=== PATIENT | female | born 1940 | race Caucasian/White ===

== ENCOUNTER → 2016-10-17 | Outpatient (CLI) | payer OTHER ==
[~2016-10-17] MED LIST: ASPCH81X PO; B-COCAP2 PO; CALC1TAB10 PO; CINN500T PO; CRAN500C2 PO; CYAN10005 PO; HYDR12.56 PO; MULT-190 PO; MULT-506 PO; OMEG10007 PO; PRAV40TA PO
--- NOTE | 2016-10-18 06:39 | PAP/PSG TECHNICIAN REPORT ---
[facility] Special Tester Polysomnogram Report Study name: None Report date: 10/18/2016 Study date: 10/17/2016 Referring Physician: Aaron LENZ M.D. Name: ROBERTH KIM Interpreting Physician: Julita Lenz M.D. Date of : 1940 Special Tester: Yolande Pisano RPSGT. Sex: Female Age: 76 Study Type: PSG Weight: 301 lbs 17.5 in Height: 76 years, Height 5' 2" Neck Circum: BMI: 55.05 Medications: FUROSEMIDE 40 MG, POTASSIUM CHLORIDE 20 MEQ, VIT D3 1000 UNIT, CINNAMON 500 MG, CRANBERRY 1000 MG, VIT B-12 1000 MG, PRESERVISION, FISH OIL 1200 MG, CALCIUM 1000 +D 800 M, B COMPLEX, MULTI VIT, ASPIRIN 81 MG Patient History 76 yr-old female here for a baseline/split study. She has had previous sleep testing in 2007. She could not tolerate CPAP but is back to assess her ARIA. She still has a history of some daytime sleepiness. Her [place] scale is 6. The test was started on room air. ETCO2 testing is included in this study. Room 3 Parameters Monitored NPSG: E1-M2, E2-M1, Fp1-M2, Fp2-M1, F3-M2, F4-M2, F4-M1, C3-M2, C4-M2, C4-M1, O1-M2, O2-M2, O2-M1, T3-M2, T4-M1, P3-M2, P4-M1, CHIN1, CHIN2, HR, EKG, Legs, PFLOW, SNOR, FLOW, CFLOW, Tidal Volume, THOR, ABDO, SpO2, PLTH, CPRESS, ETCO2 Wave, ETCO2, pH Sleep Architecture Sleep Stages Time at Lights Off 10:53:38 PM STAGES Time (min.) TST (%) Time at Lights On 5:43:08 AM Wake 95.5 -- Total Recording Time (TRT) 409.00 min. N1 55.5 18 Total Sleep Period (TSP) 369.5 min. N2 169.5 54 Total Sleep Time (TST) 313.5min. N3 17.0 5 Awake Time 95.5 min. REM 71.5 23 Wake after Sleep Onset 56.0 min. Sleep Efficiency (SE) 77 % Sleep Onset Latency (BRENTON) 40.0 min. Number of Stage 1 Shifts None Awakenings 16 Stage Changes 87 Number of REM periods 4 REM 71.5 23 REM Latency 150.0 min. NREM 242.0 77 Body Position Analysis Supine Right Left Side Prone Vertical Total Sleep Time (min.) 93.1 0.0 264.5 264.50 0.0 0.0 Total Sleep Time (%) 16% 0% 84% 84 0% N/A% Total Sleep Time REM (min.) 0.0 0.0 71.5 None 0.0 0.0 Total Sleep Time NREM (min.) 49.0 0.0 193.0 None 0.0 0.0 Intermittent Wake (min.) 44.1 0.0 51.4 None 0.0 0.0 Total Sleep Period (%) 15% None None None None None Arousals Myoclonus (PLM) * Events Count Index Events Count Index Spontaneous 14 3 Events Awake (PLMW) 161 101.2 Respiratory 41 8.0 Events Asleep w/ Arousal (PLMA) 84 16.1 PLM 84 16 Events Asleep w/o Arousal (PLMS) 133 25.5 Snoring 17 3 Total Asleep 217 41.5 Total 156 30 Total 378 55 Respiratory Analysis * CA OA MA CH H RERA Total Count 15 33 0 0 31 25 79 Index 2.9 6.3 0.0 0 5.9 5 19.9 Mean Duration 13.8 15.8 0.0 0.00 18.5 18.4 17.0 Longest Duration 18.2 29.3 0.0 0.00 0.0 28.6 41.3 Respiratory Event Summary Total Supine ~Supine Right Left Prone REM NREM Apneas Count 48 12 36 N/A 36 N/A 12 36 Index 9.2 15 8 N/A 8.2 N/A 10 9 Hypopneas (4% Desat) Count 31 6 25 N/A 25 N/A 22 9 Index 5.9 7.3 6 N/A 5.7 N/A 18.5 2.2 Apneas & All Hypopneas Count 79 18 61 N/A 61 N/A 34 45 Index 15.1 22 14 N/A 14 N/A 28.5 11.2 Respiratory Events ([employer] Supervisor+All Hyp+RERA) Count 79 34 70 N/A 70 N/A 34 45 Index 19.9 42 16 N/A 15.9 N/A 29.4 17.1 Respiratory Related Arousal Count 41 34 14 N/A 14 N/A 4 38 Index 8.0 34 3 N/A 3 N/A 3 9 Snoring Analysis Supine Right Left Prone REM NREM Total Snore duration 64.4 min Snores count 170 N/A 1,997 N/A 588 1,579 2,167 Snore mean duration 1.8 Sec Snores index 208 N/A 453 N/A 493.4 391.5 414.7 TST with snoring (%) 20.5% SpO2 Analysis Total REM NREM Awake <50% 0.0 min. 0.0 min. 0.0 min. 0.0 min. 51 - 60% 0.0 min. 0.0 min. 0.0 min. 0.0 min. 61 - 70% 0.1 min. 0.1 min. 0.0 min. 0.0 min. 71 - 80% 0.8 min. 0.8 min. 0.0 min. 0.0 min. 81 - 90% 75.7 min. 22.4 min. 52.5 min. 0.7 min. 91 - 100% 332.0 min. 48.2 min. 189.4 min. 94.4 min. Average 92 91 92 93 Minimum SpO2 70 70 85 88 Desaturation Event Index 7.5 22.7 4.5 3.8 # Desat. Events below 89% 22 20 2 N/A Time(%) with Saturation below 89% 5.2 3.5 1.6 0.1 Time(min.) with Saturation below 89% 21.4 14.5 6.7 0.2 Heart Rate Analysis End Tidal CO2 Analysis Min (bpm) Max (bpm) Average (bpm) TSP (mins) % of TSP Awake 46 75 63 Above 55 mmHg 0.0 0.0 NREM 45 99 56 50-55 mmHg 8.1 2.6 REM 48 76 60 45-50 mmHg 82.8 26.4 Overall 45 99 57 40-45 mmHg 75.3 24.0 35-40 mmHg 32.0 10.2 30-35 mmHg 19.4 6.2 Average ETCO2 0.2 Supplemental O2 Values Minimum O2 level: None Value Start Time End Time Special Tester Comments Ms. Kim slept in the supine and left positions. No cardiac arrhythmias were noted. PLMs were noted. No bruxism noted. Snoring was noted and scored as a 3 on a scale of 1 through 5. (0=no snoring, 5=snoring loud enough to be heard through a closed door or down the becerra way). She did not meet specific Split-Night criteria during the diagnostic portion of this study. She did not wake up to use the restroom during the night. Ms. Kim stated that she did not sleep as well as she usually does. The final report will be interpreted and signed by a sleep physician. The completed physician report will then be placed in the patient medical record. Therapy (cm H2O) 0 TIB (min.) 409.0 TST (min.) 313.5 Sleep Onset (min.) 40.0 REM Onset From Sleep (min.) 150.0 Sleep Efficiency % 77 Wakefulness (%) 23 Wakefulness (min.) 95.5 NREM 1 (%) 18 NREM 1 (min.) 55.5 NREM 2 (%) 54 NREM 2 (min.) 169.5 NREM 3 (%) 5 NREM 3 (min.) 17.0 REM (%) 23 REM (min.) 71.5 # Arousals 156 Arousal Index 30 # Snore 2,167 Snore Index 414.7 AHI 15.1 AHI Supine 22 AHI Non-Supine 14 NREM AHI 11.2 REM AHI 28.5 RDI 19.9 # Obstructive Apnea 33 # Central Apnea 15 # Mixed Apnea 0 # Hypopneas 31 RERAs 25 Total Respiratory Events 105 Time Below SpO2 89% (min.) 21.2 Mean NREM SpO2 (%) 92 Mean REM SpO2 (%) 91 Mean Sleep SpO2 (%) 92 Min NREM SpO2 (%) 85 Min REM SpO2 (%) 70 Position Supine (min.) 93.1 Position Non-supine (min.) 264.5 LM Index Sleep 41.5 LM Index NREM 47.9 LM Index REM 20.1 Mean Heart Rate (bpm) 57 Min Heart Rate (bpm) 45 Special Tester Comments and User Events: Comment/Event Page Number Time of Day PT CALS 345 10:49:45 PM Look Right 345 10:50:05 PM Look Up 345 10:50:06 PM Look Left 345 10:50:07 PM Look Up 346 10:50:13 PM Look Down 346 10:50:16 PM Eyes Closed 346 10:50:23 PM Bite down on Jaw 346 10:50:35 PM Flex foot 347 10:50:42 PM Hold Breath 347 10:50:53 PM Snore sound 347 10:51:07 PM Effort (Abdomen) mapped to 6A-7R 521 12:17:59 AM Effort (Abdomen) mapped to 6A-6R 521 12:18:02 AM Effort (Abdomen) mapped to 7A-6R 549 12:31:55 AM Effort (Abdomen) mapped to 7A-7R 549 12:31:58 AM SHE STATED THAT SHE DOES NOT SLEEP WITH CLOTHES ON AND FEELS "TOO BOUND UP" 556 12:35:31 AM THAT END TIDAL HOSE IS RIGHT IN HER NOSE AND STILL NOT WORKING 892 3:23:12 AM
--- NOTE | 2016-10-30 21:10 | POLYSOMNOGRAPH REPORT ---
REFERRING PERSON: Dr. Eladio Lenz. FISHER TRAWL NET: Yolande Pisano. Ms. Martinez is a 76-year-old female sent for baseline sleep study. She has sleep testing performed in 2007, which showed obstructive sleep apnea; however, at that time she could not tolerate CPAP therapy and was not treated. She does have some daytime sleepiness. Her [place] sleepiness scale score on the evening of this study is 6. BMI is 55.05. Following the technical and digital specifications of the [place] [employer] (AASM) a standard diagnostic polysomnogram was performed monitoring EEG, EOG, EMG (chin and leg deviations), oxygen saturation, body position, digital video, respiratory effort and airflow. The sleep Stage and event scoring was based on the AASM Manual for the Scoring of Sleep and Associated Events 2007 edition. Apneas are defined as a drop in the peak thermal sensor excursion by >90% of baseline for at least 10 seconds. Hypopneas were scored using the 4% oxygen desaturation rule (4A-[employer]ic[employer]) and a decrease in the nasal pressure excursions by >30% of baseline for at least 10 seconds. Respiratory effort-related arousal (RERA's) is defined as a sequence of breaths lasting at least 10 seconds characterized by increasing respiratory effort or flattening of the nasal pressure waveform leading to an arousal from sleep when the sequence of breaths does not meet criteria for an apnea or hypopnea. Apnea Hypopnea index (AHI) is defined as the number of apneas and hypopneas occurring in an hour of sleep. Respiratory disturbance index (RDI) is defined as the number of apneas, hypopneas, and RERA's occurring in an hour of sleep. Ms. Martinez's total sleep period time was 369.5 minutes. Total sleep time was 313.5 minutes. Sleep efficiency was 77%. Latency to sleep onset was 40 minutes with wake after sleep onset of 56 minutes. Total non-REM sleep time was 242 minutes. She spent 18% of that time in N1 sleep, 54% in N2 sleep, and 5% in N3 sleep. REM latency was 150 minutes. Total REM sleep time was 71.5 minutes or 23% of total sleep time. There were 156 cortical arousals from sleep. Thirteen of these arousals were spontaneous, 41 were due to respiratory events, 84 were due to periodic limb movements of sleep and 17 were due to snoring. There were 217 periodic limb movements noted on this test. Limb movement index was 41.5 and limb movement with arousal index was 16.1. There were 15 central, 33 obstructive and no mixed apneas on this test. Additionally, there were 31 hypopneas and 25 RERAs for an apnea hypopnea index of 15.1 and RDI of 19.9. This is consistent with moderate sleep apnea. There were 2167 snoring events recorded. Total sleep time with snoring was 20.5%. Mean saturation was 92% with desaturations less than 89% for 21.4 minutes of recorded time. There was no cardiac ectopy noted on this study. Heart rates during sleep ranged from a low of 45 beats per minute to a high of 99 beats per minute. End-tidal CO2 was recorded on this test. End tidal CO2 was between 50 and 55 mmHg for 2.6% of total sleep period time, between 45 and 50 mmHg for 26.4%, between 40 and 45 mmHg for 24%, between 35 and 40 mmHg for 10.2% and between 30 and 35 mmHg for 6.2% of total sleep period time. IMPRESSION AND PLAN: A 76-year-old female with evidence of moderately severe sleep apnea with mild nocturnal hypoxemia on this sleep study. This patient would likely benefit from positive airway pressure therapy. She should return to sleep lab for a full night titration and then based on those results be started on equipment at home. A download from her machine can be reviewed in 1 month both to check compliance as well as AHI and further pressure adjustments can occur at that time.
== END | disposition home or self-care (01) ==
LOC: C.NEUR 20:00
PROVIDERS: ATTEND Family Medicine
DX: Z86.79 Personal history of other diseases of the circulatory system (principal); E66.01 Morbid (severe) obesity due to excess calories; G47.33 Obstructive sleep apnea (adult) (pediatric)